=== PATIENT | female | born 1985 | race Caucasian/White ===

== ENCOUNTER → 2016-08-26 | Outpatient (CLI) | payer MEDICAID ==
[~2016-08-26] MED LIST: FLINTSTONES COM1 CTB PO; FLINTSTONES1 CTB PO
== END ==
LOC: LAB 14:27
DX: O03.9 Complete or unspecified spontaneous abortion without complication (principal)

== ENCOUNTER → 2017-06-15 | Outpatient (CLI) | payer MEDICAID ==
[2017-06-15 12:44] LABS: HEMOGLOBIN 13.8 g/dL (12.2-16.2); LYMPH # 1.3 K/mm3 (0.7-4.5); LYMPH % 16.4 % (10-50.0)
[2017-06-15 16:11] LABS: ABO BLOOD TYPE A; RH BLOOD TYPE POSITIVE
[2017-06-16 04:38] LABS: HIV Screen 4th Generation wRfx Non Reactive (Non Reactive)
[2017-06-16 05:40] LABS: HBsAg Screen Negative (Negative); Hep C Virus Ab <0.1 (0.0-0.9); Rubella Antibodies, IgG 4.88 index (Immune >0.99)
[2017-06-16 09:37] LABS: Rapid Plasma Reagin, Quant Non Reactive (NonRea<1:1)
== END ==
LOC: LAB 10:51
PROVIDERS: Nurse Practitioner Obstetrics & Gynecology
DX: Z34.80 Encounter for supervision of other normal pregnancy, unspecified trimester (principal)
CPT/HCPCS: G0432